=== PATIENT | male | born 1985 | race Two or more races ===

== ENCOUNTER 2023-08-26 17:16 | Inpatient (IN) | payer OTHER ==
[~2023-08-26] VITALS: Ht 182.9 cm; Wt 100.0 kg
[2023-08-26] MEDS ORDERED: ASPIRIN 81MG CHEW TABLET PO ONE (19:25)
[2023-08-26 19:45] LABS: HEMATOCRIT 46.5 % (42.0-52.0); MEAN CORPUSCULAR HEMOGLOBIN 29.7 pg (27.0-33.0); MEAN CORPUSCULAR HGB CONC 34.4 g/dl (32.0-36.5); MEAN CORPUSCULAR VOLUME 86.4 fl (80.0-96.0); PLATELET COUNT, AUTOMATED 370 10^3/uL (150-450); RED BLOOD COUNT 5.38 10^6/uL (4.30-6.10); WHITE BLOOD COUNT 10.2 10^3/uL (4.0-10.0)
[2023-08-26 20:10] LABS: AMPHETAMINES LEVEL URINE NEGATIVE (NEGATIVE); BARBITURATES URINE NEGATIVE (NEGATIVE); PHENCYCLIDINE URINE NEGATIVE (NEGATIVE)
[2023-08-26 20:11] LABS: CANNABINOIDS URINE NEGATIVE (NEGATIVE); COCAINE METABOLITE URINE NEGATIVE (NEGATIVE); METHADONE URINE NEGATIVE (NEGATIVE); OPIATES URINE NEGATIVE (NEGATIVE)
[2023-08-26 20:12] LABS: BENZODIAZEPINES URINE NEGATIVE (NEGATIVE)
[2023-08-26 20:13] LABS: CK-MB VALUE MASS < 1.0 NG/ML (<3.6); ETHYL ALCOHOL (ETHANOL) < 0.003 % (0.000-0.010)
[2023-08-26 20:14] LABS: ACETAMINOPHEN LEVEL < 2.0 UG/ML (10.0-20.0); CPK CREATINE PHOSPHOKINASE 140 U/L (46-171); MB/CK RELATIVE INDEX 0.71 (< OR =4)
[2023-08-26 20:15] LABS: ALBUMIN 4.2 G/DL (3.2-5.2); ALKALINE PHOSPHATASE 54 U/L (46-116); ALT/SGPT 46 U/L (7.0-40); AST/SGOT 25 U/L (<34); BILIRUBIN,DIRECT 0.2 MG/DL (<0.4); BILIRUBIN,TOTAL 0.5 MG/DL (0.3-1.2); BLOOD UREA NITROGEN 13 MG/DL (9-23); CALCIUM LEVEL 9.5 MG/DL (8.5-10.1); CARBON DIOXIDE LEVEL 28 MMOL/L (20-31); CHLORIDE LEVEL 106 MMOL/L (98-107); CREATININE FOR GFR 0.97 MG/DL (0.70-1.30); GLOMERULAR FILTRATION RATE > 60.0 (>60); GLUCOSE, FASTING 135 MG/DL (60-100); POTASSIUM SERUM 4.6 MMOL/L (3.5-5.1); SALICYLATE LEVEL < 3.0 MG/DL (<30); SODIUM LEVEL 140 MMOL/L (136-145); TOTAL PROTEIN 7.4 G/DL (5.7-8.2)
[2023-08-26 20:17] LABS: THYROID STIMULATING HORMONE 1.231 uIU/ML (0.55-4.78)
[2023-08-26] MEDS ORDERED: ZIPR80CA30 PO (22:36)
[2023-08-26] MEDS ORDERED: CONC27TA4 PO (22:36)
[2023-08-27] MEDS ORDERED: HOME MED LIST COMPLETE! XX SCH
[2023-08-27] MEDS: ZIPRASIDONE 80 MG CAP (GEODON) PO SCH ×2 (00:08→21:07)
[2023-08-27] MEDS: METHYLPHENIDATE ER 18MG TABLET (CONCERTA) PO SCH (09:09)
[2023-08-28] MEDS: METHYLPHENIDATE ER 18MG TABLET (CONCERTA) PO SCH (09:26)
[2023-08-28] MEDS: ZIPRASIDONE 80 MG CAP (GEODON) PO SCH (21:44)
[2023-08-29] MEDS ORDERED: PILL CUTTER 1 EACH XX ONE (08:13)
[2023-08-29] MEDS: METHYLPHENIDATE ER 18MG TABLET (CONCERTA) PO SCH (08:20)
[2023-08-29] MEDS ORDERED: MOM 30ML SUSPENSION UDC PO PRN (15:10)
[2023-08-29] MEDS ORDERED: traZODone 50 MG TAB PO PRN (15:10)
[2023-08-29] MEDS ORDERED: ACETAMINOPHEN TAB 650MG DOSE (2X325MG) PO PRN (15:10)
[2023-08-29] MEDS ORDERED: OLANZapine ORAL DISINTEGRATING TAB 5MG PO PRN (15:10)
[2023-08-29] MEDS ORDERED: MAALOX 30 ML SUSP *UDC PO PRN (15:10)
[2023-08-29] MEDS ORDERED: IBUPROFEN 400MG TAB PO PRN (15:10)
[2023-08-29] MEDS ORDERED: diphenhydrAMINE 25MG CAP PO PRN (15:10)
[2023-08-29 17:14] VITALS: BP 163/97; TEMP 97.6; O2SAT 97
[2023-08-29] MEDS ORDERED: ZIPRASIDONE 80 MG CAP (GEODON) PO SCH (18:00)
[2023-08-29 18:57] VITALS: BP 160/110
[2023-08-29] MEDS ORDERED: LORazepam 2 MG TAB PO PRN (19:15)
[2023-08-29] MEDS: THIAMINE 100 MG TAB PO SCH (20:34)
[2023-08-29 20:37] VITALS: BP 139/84
[2023-08-30 06:00] VITALS: BP 124/77
[2023-08-30 06:52] VITALS: BP 124/77; TEMP 97.7; O2SAT 100
[2023-08-30] MEDS: THIAMINE 100 MG TAB PO SCH (09:00)
[2023-08-30] MEDS ORDERED: FOLIC ACID 1MG TAB PO SCH (09:00)
[2023-08-30] MEDS ORDERED: MULTIVITAMINS/MINERALS THERAP 1 TAB PO SCH (09:00)
[2023-08-30] MEDS ORDERED: METHYLPHENIDATE ER 18MG TABLET (CONCERTA) PO SCH (09:00)
[2023-08-30 16:13] VITALS: BP 123/81; TEMP 98.7; O2SAT 100
[2023-08-30] MEDS: ZIPRASIDONE 80 MG CAP (GEODON) PO SCH (20:09)
[2023-08-31 06:53] VITALS: BP 142/81; TEMP 98.3; O2SAT 96
[2023-08-31 07:27] LABS: CHOLESTEROL RISK RATIO 4.2 (<5); HDL CHOLESTEROL 32.8 MG/DL (>40); LDL CHOLESTEROL 82.2 MG/DL (<100); NON-HDL-C 105.2 MG/DL
[2023-08-31 16:32] VITALS: BP 139/84; TEMP 98; O2SAT 98
[2023-08-31] MEDS: ZIPRASIDONE 80 MG CAP (GEODON) PO SCH (20:02)
[2023-09-01 06:32] VITALS: BP 124/63; TEMP 97.6; O2SAT 98
[2023-09-01] MEDS ORDERED: ZIPRASIDONE 20MG CAPSULE (GEODON) PO SCH (08:00)
[2023-09-01] MEDS: ZIPRASIDONE 80 MG CAP (GEODON) PO SCH (20:01)
[2023-09-02 06:28] VITALS: BP 120/86; TEMP 97.4; O2SAT 98
[2023-09-02] MEDS ORDERED: ARIPiprazole 10 MG TAB PO SCH (09:00)
[2023-09-02] MEDS ORDERED: ZIPR80CA30 PO (10:14)
[2023-09-02] MEDS ORDERED: ABIL10TA9 PO (10:14)
== END 2023-09-02 11:15 | disposition home or self-care (01) | DRG 753 ==
LOC: M ED 17:16 → M ED INP 08-29 15:08 → M PSY 08-29 17:12
PROVIDERS: ADMIT Student in an Organized Health Care Education/Training Program; ATTEND Student in an Organized Health Care Education/Training Program
DX: F31.9 Bipolar disorder, unspecified (principal); R45.850 Homicidal ideations; R45.851 Suicidal ideations; F42.9 Obsessive-compulsive disorder, unspecified; R31.1 Benign essential microscopic hematuria; D72.829 Elevated white blood cell count, unspecified; R73.03 Prediabetes; R74.01 Elevation of levels of liver transaminase levels; Z79.899 Other long term (current) drug therapy